=== PATIENT | female | born 1985 | race Caucasian/White ===

== ENCOUNTER 2024-03-25 11:27 | Emergency (ER) | payer OTHER ==
[~2024-03-25] VITALS: Ht 170.2 cm; Wt 147.0 kg
[~2024-03-25 11:27] MED LIST: BENADRYL25 MG PO; CLARITIN10 MG PO; DICLOFENAC SODI50 MG PO; FLONASE ALLERG9.9 ML NAS; IMITREX100 MG PO; KEFLEX500 MG PO; NAPROSYN500 MG PO; OMEPRAZOLE20 MG PO; OXYCODONE HCL5 MG; ULTRAM50 MG; ZYRTEC10 MG PO
[2024-03-25] MEDS ORDERED: SODIUM CHLORIDE 0.9% 1,000 ML IV PRN (11:45)
[2024-03-25] MEDS ORDERED: METOCLOPRAMIDE HCL 10 MG/2 ML SDV IV ONE (11:45)
[2024-03-25] MEDS ORDERED: DEXAMETHASONE SOD PHOS 10 MG/ML VIAL IV ONE (11:45)
[2024-03-25] MEDS ORDERED: diphenhydrAMINE HCL 50 MG/ML VIAL IV ONE (11:45)
[2024-03-25 11:50] LABS: BASOPHILS 0.7 % (0-2); EOSINOPHILS 3.5 % (0-6); HEMATOCRIT 38.9 % (35.0-50.0); HEMOGLOBIN 13.1 g/dL (12.0-18.0); LYMPHOCYTES 28.7 % (24-44); MCH 29.1 (27-36); MCHC 33.8 g/dl (30-36); MCV 86.3 fl (81-99); MONOCYTES 6.3 % (0-12); NEUTROPHILS 60.8 % (39-80); PLATELET COUNT 252 K/uL (140-440); RDW 13.7 (10.5-15.0)
[2024-03-25 12:11] LABS: ALBUMIN 3.4 g/dL (3.4-5.0); ALBUMIN/GLOBULIN RATIO 0.87 (1.1-2.4); ANION GAP 11.7 (7-21); BILIRUBIN, TOTAL 0.4 ng/dL (0.2-1.0); BUN/CREATININE RATIO 17.72 (6.0-28.6); CALCIUM 8.2 mg/dL (8.5-10.1); CREATININE, SERUM 0.79 mg/dL (0.55-1.02); MAGNESIUM 1.9 mg/dL (1.8-2.4); POTASSIUM 3.7 mmol/L (3.5-5.1); PROTEIN, TOTAL 7.3 g/dL (6.4-8.2)
[2024-03-25] MEDS ORDERED: NALTREXONE HCL50 MG PO (12:28)
[2024-03-25] MEDS ORDERED: LORATADINE10 MG PO (12:29)
[2024-03-25] MEDS ORDERED: METFORMIN HCL500 M1 PO (12:29)
[2024-03-25] MEDS ORDERED: CHLORPROMAZINE10 MG PO (12:30)
[2024-03-25 13:19] LABS: BILIRUBIN, URINE NEGATIVE (negative); BLOOD/HGB, URINE NEGATIVE (Negative); KETONE, URINE NEGATIVE (Negative); LEUK ESTERASE, URINE NEGATIVE (negative); NITRITE, URINE NEGATIVE (negative); PH, URINE 7.5 (5-7)
[2024-03-25 13:23] LABS: EPITHELIAL CELLS, URINE SQUAMOUS 3+ /lpf (0-1+)
[2024-03-25 13:24] LABS: BACTERIA, URINE 1+ /hpf (negative); CASTS, URINE NONE SEEN \\lpf; COLLECTION TYPE, URINE CLEAN CATCH; CRYSTALS, URINE NONE SEEN (0-1+); RED BLOOD CELLS, URINE 0-1 /hpf (0-5); REFLEX CULTURE, URINE No (No); WHITE BLOOD CELLS, URINE 0-1 /HPF (0-5)
[2024-03-25] MEDS ORDERED: KETOROLAC TROMETHAMINE 30 MG/ML VIAL IV ONE (13:30)
[2024-03-25] MEDS ORDERED: MAGNESIUM SULFATE 2 GM/50 ML BAG IV ONE (13:30)
[2024-03-25 19:03] VITALS: BP 133/72
--- NOTE | 2024-03-25 22:44 | EKG ---
[facility] [address] [facility] [place] [address] Signed Normal sinus rhythm Normal ECG No previous ECGs available Confirmed by Ba Cooley MD () on 03/25/2024 10:44:31 PM Electronically Signed By: BA COOLEY MD 03/25/24 2244 PATIENT NAME: KENIA SPENCE Electrocardiogram DATE OF : 87 PHYSICIAN: BA COOLEY MD REPORT #: [id number] REPORT IS CONFIDENTIAL AND NOT TO BE RELEASED WITHOUT AUTHORIZATION
== END 2024-03-25 19:12 | disposition home or self-care (01) ==
LOC: ED 11:27
PROVIDERS: Emergency Medicine
DX: G43.909 Migraine, unspecified, not intractable, without status migrainosus (principal); R53.1 Weakness; J45.909 Unspecified asthma, uncomplicated; E66.9 Obesity, unspecified; F43.10 Post-traumatic stress disorder, unspecified; Z87.891 Personal history of nicotine dependence; Z88.8 Allergy status to other drugs, medicaments and biological substances; Z88.5 Allergy status to narcotic agent; Z91.048 Other nonmedicinal substance allergy status; Z79.899 Other long term (current) drug therapy; Z79.84 Long term (current) use of oral hypoglycemic drugs
CPT/HCPCS: 36415; 70450; 70496; 70498; 70551; 71045; 80053; 81001; 83735; 84484; 84703; 85025; 93005; 93010; 96375; 99285-25; J1100; J1200; J1885; J2765; J3475; J7030; Q9967

== ENCOUNTER 2025-01-09 20:08 | Emergency (ER) | payer MEDICARE, OTHER ==
[~2025-01-09] VITALS: Ht 170.2 cm; Wt 147.5 kg
[~2025-01-09 20:08] MED LIST changes: +CHLORPROMAZINE10 MG PO; +LORATADINE10 MG PO; +METFORMIN HCL500 M1 PO; +NALTREXONE HCL50 MG PO
[2025-01-09] MEDS ORDERED: LAMICTAL ODT50 MG (20:24)
[2025-01-09 20:40] LABS: BASOPHILS 0.8 % (0-2); EOSINOPHILS 4.1 % (0-6); HEMATOCRIT 36.8 % (35.0-50.0); HEMOGLOBIN 12.5 g/dL (12.0-18.0); LYMPHOCYTES 30.7 % (24-44); MCH 28.9 (27-36); MCHC 34.1 g/dl (30-36); MCV 84.9 fl (81-99); MONOCYTES 6.6 % (0-12); NEUTROPHILS 57.8 % (39-80); PLATELET COUNT 296 K/uL (140-440); RBC 4.33 M/ul (4.3-5.7); RDW 13.8 (10.5-15.0)
[2025-01-09 20:58] LABS: ALBUMIN 3.3 g/dL (3.4-5.0); ALBUMIN/GLOBULIN RATIO 0.83 (1.1-2.4); ANION GAP 9.7 (7-21); BILIRUBIN, TOTAL 0.2 mg/dL (0.2-1.0); BUN/CREATININE RATIO 11.7 (6.0-28.6); CALCIUM 8.3 mg/dL (8.5-10.1); CREATININE, SERUM 0.94 mg/dL (0.55-1.02); MAGNESIUM 1.9 mg/dL (1.8-2.4); POTASSIUM 3.7 mmol/L (3.5-5.1); PROTEIN, TOTAL 7.3 g/dL (6.4-8.2)
[2025-01-09] MEDS ORDERED: KETOROLAC TROMETHAMINE 30 MG/ML VIAL IV ONE (21:45)
[2025-01-09] MEDS ORDERED: FAMOTIDINE 20 MG/ 2 ML VIAL IV ONE (21:45)
[2025-01-09 22:31] VITALS: BP 128/87
--- NOTE | 2025-01-10 10:39 | EKG ---
[facility] [address] [facility] [place] [address] Signed Normal sinus rhythm Normal ECG When compared with ECG of 25-MAR-2024 11:56, No significant change was found Confirmed by Tahir Larose DO ([id number]) on 01/10/2025 10:38:54 AM Electronically Signed By: TAHIR LAROSE DO 01/10/25 1039 PATIENT NAME: KENIA SPENCE Electrocardiogram DATE OF : 87 PHYSICIAN: TAHIR LAROSE DO REPORT #: [id number] REPORT IS CONFIDENTIAL AND NOT TO BE RELEASED WITHOUT AUTHORIZATION
== END 2025-01-09 22:32 | disposition home or self-care (01) ==
LOC: ED 20:08
PROVIDERS: Internal Medicine
DX: M75.52 Bursitis of left shoulder (principal); R07.89 Other chest pain; Z87.891 Personal history of nicotine dependence; J45.909 Unspecified asthma, uncomplicated; Z88.5 Allergy status to narcotic agent; Z91.048 Other nonmedicinal substance allergy status
CPT/HCPCS: 36415; 71045; 80053; 83735; 84484; 85025; 93005; 93010; 96374; 96375; 99285-25; J1885

== ENCOUNTER 2025-02-22 07:55 | Day surgery (SDC) | payer MEDICARE, OTHER ==
[2025-02-22] VITALS (7 sets, daily range): BP systolic 135–149; BP diastolic 64–84
[~2025-02-22] VITALS: Ht 170.2 cm; Wt 150.0 kg
[~2025-02-22 07:55] MED LIST changes: +CEFAZOLIN SODIUM 3 GM/30 ML SYR IV SCH; +HEParin SOD (PORCINE) 5,000 UNIT/ML SDV SUB-Q SCH; +IBLOOD GLUCOSE TEST STRIP 1 EA TEST VI PRN; +IBU800 MG PO; +LACTATED RINGER'S 1,000 ML IV SCH; +LAMICTAL100 MG PO; +LIDOCAINE HCL 1% 5 ML SDV INJ ONE; +MULTIVITAMIN1 EACH PO; +PAIN RELIEVER325 MG PO; +VITAMIN D350 MCG PO; +metroNIDAZOLE/SODIUM CHLORIDE 500 MG/100 ML PIGGYBACK IV SCH
[2025-02-22] MEDS ORDERED: DEXAMETHASONE SOD PHOS 4 MG/ML VIAL ONE (10:38)
[2025-02-22] MEDS ORDERED: KETOROLAC TROMETHAMINE 30 MG/ML VIAL ONE ×2 (10:38→14:56)
[2025-02-22] MEDS ORDERED: ondansetron HCL 4 MG/2 ML VIAL ONE (10:38)
[2025-02-22] MEDS ORDERED: propofoL 200 MG/20 ML VIAL ONE (10:38)
[2025-02-22] MEDS ORDERED: LIDOCAINE HCL 2% 5 ML SDV ONE (10:39)
[2025-02-22] MEDS ORDERED: ACETAMINOPHEN 1,000 MG/100 ML VIAL ONE (10:39)
[2025-02-22] MEDS ORDERED: fentaNYL citrate 100 MCG/2 ML VIAL ONE ×3 (10:39→14:33)
[2025-02-22] MEDS ORDERED: ROCURONIUM BROMIDE 50 MG/5 ML SYR ONE ×2 (10:39→13:20)
[2025-02-22] MEDS ORDERED: MIDAZOLAM HCL 2 MG/2 ML VIAL ONE (10:40)
[2025-02-22] MEDS ORDERED: SCOPOLAMINE 1 MG/3 DAYS PATCH 1 EACH TDSY ONE (13:07)
[2025-02-22] MEDS ORDERED: SEVOFLURANE 250 ML BTL INH ONE (13:42)
[2025-02-22] MEDS ORDERED: SUGAMMADEX SODIUM 200 MG/2 ML ML ONE (14:05)
[2025-02-22] MEDS ORDERED: LACTATED RINGER'S 1,000 ML IV SCH (15:00)
[2025-02-22] MEDS ORDERED: FAMOTIDINE 20 MG/ 2 ML VIAL IV PRN (15:00)
[2025-02-22] MEDS ORDERED: ondansetron HCL 4 MG/2 ML VIAL IV PRN (15:00)
[2025-02-22] MEDS ORDERED: MORPHINE SULFATE 10 MG/ML VIAL IV PRN (15:00)
[2025-02-22] MEDS ORDERED: OXYCODONE/APAP 5/325 TAB PO PRN (15:00)
[2025-02-22] MEDS ORDERED: bisacodyL 10 MG SUPP PR PRN (15:00)
[2025-02-22] MEDS ORDERED: FAMOTIDINE 20 MG TAB PO PRN (15:00)
[2025-02-22] MEDS ORDERED: SIMETHICONE 80 MG CHEW PO PRN (15:00)
[2025-02-22] MEDS ORDERED: MAGNESIUM HYDROXIDE/AL HYDROX 30 ML CUP PO PRN (15:00)
[2025-02-22] MEDS ORDERED: NALOXONE HCL 0.4 MG SYR IV PRN ×2 (15:00→15:30)
[2025-02-22] MEDS ORDERED: ALBUTEROL SULFATE 8 GM INH ONE (15:15)
[2025-02-22] MEDS ORDERED: droPERidol 5 MG/2 ML VIAL IV PRN (15:30)
[2025-02-22] MEDS ORDERED: fentaNYL citrate 50 MCG/ML SDV IV PRN (15:30)
--- NOTE | 2025-02-22 15:56 | NUR ---
Pt arrived to floor via stretcher, transported by RNs Patrica and Digna. Pt self transferred from stretcher to bed using stand and pivot method. Pt is A&O x4, but drowsy, easily awakened to voice. GCS of 15. SpO2 on room air was 87%, and I noted that her fingernails are blue and her skin is cool and pale. Pt later states that when she gets cold, her fingernails always turn blue. Pt was placed on 4lpm O2 via NC until her sats increased to above 94%, then her O2 was decreased to 2lpm, and shortly thereafter, to 1LPM. After my assessment and admission documentation was complete, Louis Beckie, from [facility], entered the room and I updated him on the pt's sats, and that she has a home CPAP for him to look over. While Louis was present, I assisted the pt to stand and ambulate one lap around the [facility] floor. She tolerated this well, and only c/o increasing pain when she got close to the room. Pt VS obtained at this time (1700 hours). VS WNL. Pt on room air during ambulation and once back in room. Pt requested the carlos catheter be d/c'd rivas as she is feeling the sensation to urinate and it is "very annoying". Per Dr. Vidales's orders, okay to D/C carlos once pt is up and ambulating. Carlos dc'd at approximately 1657 hours and pt ambulated SBA with L&T mgmt to toilet as she felt the sensation to void. She states she did not urinate and when she wiped, she noted some light spotting (blood). She requested her own underwear and stated she planned ahead and placed a maxi pad in it already. She donned her underwear with little assistance. Pt rates her abdominal pain a 3 out of 10 at this time. Pt ambulated back to bed, SCD's on, side rails up x3, call light in reach. IV in left hand D/C'd as it was leaking and painful, pressure bandage applied. Pt sitting up at bedside with dinner tray (she initially had some water and a coffee beverage from home, crackers, and jello, and tolerated that well with no c/o nausea/vomiting). Pt's caregiver is in room with her and will be staying overnight.
[2025-02-22] MEDS ORDERED: SIMETHICONE 80 MG CHEW PO SCH (17:00)
[2025-02-22] MEDS ORDERED: SYSTANE BALANCE10 ML OU (17:48)
[2025-02-22] MEDS ORDERED: ICY HOT 10-30%85 GM TOP (17:49)
[2025-02-22] MEDS ORDERED: HYDROCODON-ACE1 EA10 PO (17:50)
[2025-02-22] MEDS ORDERED: ONDANSETRON ODT8 MG PO (17:51)
[2025-02-22] MEDS ORDERED: MIRALAX17 GM PO (17:52)
[2025-02-22] MEDS ORDERED: MILK OF MA400 MG/5 M PO (17:53)
[2025-02-22] MEDS ORDERED: COUGH DROPS5.8 MG MM (17:55)
[2025-02-22] MEDS ORDERED: TUMS200 MG PO (17:57)
[2025-02-22] MEDS ORDERED: CHLORPROMAZINE10 MG PO (17:58)
[2025-02-22] MEDS ORDERED: VENTOLIN HFA18 GM INH (18:01)
[2025-02-22] MEDS ORDERED: ROBAFEN DM CGH118 ML PO (18:02)
--- NOTE | 2025-02-22 18:03 | NUR ---
MED REC COMPLETE
--- NOTE | 2025-02-22 18:11 | NUR ---
PATIENT IS IN HER CHAIR AT THIS TIME, TRYING TO EAT SOME DINNER, SO FAR SHE HAS ONLY HAD ABOUT 5% AND ASKED ME TO LEAVE IT SO SHE CAN TRY TO EAT SOME MORE. TANK SETTER HELPER CHARTED VITALS AND I&O'S, PATIENT WOULD LIKE SOME PAIN MEDS, RN NOTIFIED. CALL LIGHT WITH IN REACH AND NOTHING ELSE NEEDED AT THIS TIME,
--- NOTE | 2025-02-22 18:42 | NUR ---
Dr. Vidales in to see pt. Pt sitting up in the chair. She states she is nauseated and has pain in her abdoment 6 out of 10. IV zofran and po percocet administered at this time. Caregiver in room. Call light in reach.
--- NOTE | 2025-02-22 18:51 | NUR ---
PT RESTING SITTING UP IN CHAIR WITH EYES CLOSED. CAREGIVER AT CHAIRSIDE, TV ON. IV FLUIDS INFUSING. PT DENIES ANY NEEDS AT THIS TIME. CALL LIGHT WITHIN REACH.
--- NOTE | 2025-02-22 18:57 | NUR ---
02/22/25 185 Digna White 1508- PT ARRIVES TO PACU, SEMI MIR POSITION. O2 AT 10L PER MASK, BREATHING EVEN AND NON LABORED. LR INFUSING TO LH IV. ABD SOFT, NON DISTENDED. NO DRAINAGE FROM 3 LAP SITES ON ABD. PT HAS ANDRES CATHETER DRAINING FLOURESINE AND URINE. ALL MONITORS IN PLACE. 1515- PT VERY DROWSY, BUT ANSWERS QUESTIONS DENIES NAUSEA. C/O NEEDING TO URINATE, EDUCATED ON ANDRES CATHETER. 1522- PT MOVED TO ROOM AIR AT THIS TIME, REPORTS PAIN 4/10 TO ABD, BUT C/O NEEDING TO URINATE. 1532- PAIN INCREASING TO 7/10, MEDICATED WITH FENTANYL PER ORDER. 1538- PT DROWSY, SATS DROP TO 86% ON ROOM AIR WHILE RESTING. 2L PER NC O2 APPLIED AT THIS TIME. TOLERATING WELL. 1600- PT TAKEN TO MED/SURG, CAREGIVER WITH PT. LR HANGING TO IV, SALINE LOCK TO RAC. PT ALERT AND ABLE TO STAND AND PIVOT TO BED. PT REPORTS PAIN BACK TO 4/10 IN ABD AND REALLY WANTS THE ANDRES CATHETER REMOVED. DENIES NAUSEA. REPORT TO ALICIA NOLAN AT BEDSIDE, CARE OF PT TURNED OVER AT THIS TIME.
--- NOTE | 2025-02-22 19:36 | NUR ---
MADE ONE ATTEMPT TO START A NEW IV IN PT'S RAC, NEXT TO LEAKING SITE. UNSUCCESSFUL. PRIMARY RN EVELIO NOTIFIED. SHE PLANS TO CALL DR. RHODES TO REQUEST TO POSSIBLY D/C IV SHE IS TOLERATING PO WELL.
--- NOTE | 2025-02-22 19:40 | NUR ---
REPORT RECEIVED FROM DAY SHIFT RN. PATIENT RESTING IN BED. DENIES NEEDS AT THIS TIME. CALL LIGHT IN REACH.
[2025-02-22] MEDS ORDERED: SENNOSIDES/DOCUSATE 1 EA TAB PO SCH (21:00)
[2025-02-22] MEDS ORDERED: lamoTRIgine 25 MG TAB PO SCH (21:00)
--- NOTE | 2025-02-22 21:24 | NUR ---
PATIENT RESTING IN BED. SCHEDULED MEDICATION ADMINISTERED. ASSESSMENT COMPLETE. ABD INSICIONS C/D/I. PATIENT REPORTS 2/10 ABD PAIN. PAIN MEDICATION ADMINISTERED. PATIENT DENIES FURTHER NEEDS. CALL LIGHT IN REACH. SCHOOL GUARD IN ROOM WITH PATIENT.
--- NOTE | 2025-02-22 21:44 | NUR ---
20G IV PLACED IN LAC, GOOD BLOOD RETURN, FLUSHED WELL. RAC IV NOT PATENT, REMOVED WNL. PT TOLERATED WELL. PT UP TO BR WITH CAREGIVER. PT WILL CALL TO HAVE IV FLUIDS RESTARTED WHEN DONE IN BR. PRIMARY RN NOTIFIED.
--- NOTE | 2025-02-22 21:52 | NUR ---
PATIENT AMBULATED ONE LAP AROUND THE OLMOS AND STATES "I FEEL SO MUCH BETTER!". PATIENT BACK TO BED. DENIES FURTHER NEEDS. JOB PUTTER UP AND TICKET PREPARER IN ROOM. CALL LIGHT IN REACH.
[2025-02-22] MEDS ORDERED: IBUPROFEN 800 MG TAB PO SCH (22:00)
--- NOTE | 2025-02-22 22:44 | NUR ---
CALL LIGHT ANSWERED. PATIENT REPORTS ABD PAIN. PRN PAIN MEDICATION ADMINISTERED. PATIENT ABULATED ONE LAP AROUND THE FLOOR INDEPENDENTLY. PATIENT BACK TO BED. NO FURTHER NEEDS. CALL LIGHT IN REACH.
--- NOTE | 2025-02-23 00:05 | NUR ---
PATIENT UP TO BATHROOM INDEPENDENTLY TO VOID. PATIENT AMBULATED ONE LAP AROUND THE OLMOS. PATIENT BACK TO BED. NO FURTHER NEEDS. CALL LIGHT IN REACH.
[2025-02-23 01:44] VITALS: BP 123/68
--- NOTE | 2025-02-23 02:04 | NUR ---
PATIENT UP TO BATHROOM INDEPENDENTLY TO VOID. PATIENT AMBULATED LAP AROUND FLOOR. PATIENT BACK TO BED. VS AND I&Os OBTAINED AND RECORDED. NEW BAG IV FLUID INFUSING PER ORDER. NO FURTHER NEEDS. CALL LIGHT IN REACH.
[2025-02-23 04:30] VITALS: BP 129/66
--- NOTE | 2025-02-23 04:33 | NUR ---
PATIENT AMBULATED LAP AROUND THE FLOOR INDEPENDENTLY. PATIENT REPORTS 5/10 ABD PAIN. PRN PAIN MEDICATION ADMINISTERED. VS AND I&Os OBTAINED AND RECORDED. PATIENT DENIES FURTHER NEEDS. CALL LIGHT IN REACH.
[2025-02-23 04:34] VITALS: BP 129/66
[2025-02-23 05:21] LABS: HEMATOCRIT 35.8 % (34.1-44.9); HEMOGLOBIN 11.4 g/dL (11.2-15.7); MCH 28.1 PG (25.6-32.2); MCHC 31.8 g/dL (32.2-35.5); MCV 88.4 fL (79.4-94.8); RBC 4.05 M/uL (3.93-5.22)
[2025-02-23] MEDS ORDERED: HEParin SOD (PORCINE) 5,000 UNIT/ML SDV SUB-Q SCH (06:00)
--- NOTE | 2025-02-23 06:08 | NUR ---
PATIENT RESTING IN BED. SCHEDULED MEDICATION ADMINISTERED. NO FURTHER NEEDS. CALL LIGHT IN REACH.
--- NOTE | 2025-02-23 07:25 | NUR ---
MORNING REPORT RECIEVED FROM AN FRASER. PT HAS BEEN AMBULATING THE HALLS THIS MORNING AND TOLERATING WELL. PT IS CURRENTLY LAYING IN BED IN ROOM WITH CAREGIVER PRESENT AT THIS TIME. PT IS AWAKE AND ALERT AND HAS NO CURRENT NEEDS AT THIS TIME, PT CALL LIGHT IN REACH.
--- NOTE | 2025-02-23 09:00 | NUR ---
PT AMBULATING THE HALLS AT THIS TIME, PT HAS NO CONCERNS OR PAIN, PT HAS CALL LIGHT IN REACH AND HOT FRAME TENDER IS WITH PT.
--- NOTE | 2025-02-23 09:03 | OR ---
[facility] [address] [place] [id number] Signed DATE OF OPERATION: 02/22/2025 SURGEON: Doris Vidales MD PREOPERATIVE DIAGNOSES: 1. Menometrorrhagia. 2. Dysmenorrhea. 3. Premenstrual dysphoric disorder. POSTOPERATIVE DIAGNOSES: 1. Menometrorrhagia. 2. Dysmenorrhea. 3. Premenstrual dysphoric disorder. PROCEDURES: Total laparoscopic hysterectomy, bilateral salpingo-oophorectomy, and cystoscopy. FINDINGS: 8-week size anteverted uterus. Normal uterus. Normal tubes and ovaries. Normal bladder. Bilateral ureteral jets during cystoscopy. ANESTHESIA: General endotracheal anesthesia. BDC MANAGER: Hallie Connor DO. IV FLUID: 1400 mL crystalloid. ESTIMATED BLOOD LOSS: 50 mL. URINE OUTPUT: 50 mL clear urine. DRAINS: Shultz to gravity. SPECIMENS: Electronically Signed By: DORIS VIDALES MD 02/23/25 0903 PATIENT NAME: KENIA SPENCE OPERATIVE REPORT DATE OF : [birth year] REPORT #: [id number] PHYSICIAN: DORIS VIDALES MD PCP: YASMANI PILLAI MD REPORT IS CONFIDENTIAL AND NOT TO BE RELEASED WITHOUT AUTHORIZATION [facility] [address] [place] [id number] Signed Uterus with cervix, tubes, and ovaries. COUNTS: Correct x2. COMPLICATIONS: Intraoperative sutures through the bladder were rectified before the end of the procedure. TECHNIQUE IN DETAIL: With informed consent, the patient was taken to the operating room where she was given general anesthesia via rapid sequence induction. Lower extremities were placed in SCD pneumatic compression devices and then placed in Yellofin stirrups. She was given 2 g of Ancef IV per protocol. She was also given 5000 units subcutaneously of heparin for DVT prophylaxis being moderate risk. She underwent exam under anesthesia. She was then prepped and draped in sterile fashion. A Shultz was placed under sterile technique. Over gloves were removed and attention was turned to the abdomen. An approximately 3 cm infraumbilical incision was made. Blunt dissection was used to access the rectus fascia. The rectus fascia was grasped with Allis clamps and elevated. Using Metzenbaum scissors, we carefully incised the fascia. Once the fascial plane was found, this was slightly enlarged to allow placement of a 10 mm Zoraida port. Stay sutures of 0 Vicryl were placed superiorly and inferiorly. The peritoneum was entered bluntly. The Zoraida port was then inserted and the balloon inflated. We then attached port to CO2 insufflation. With adequate insufflation, a 10 mm scope was inserted and the patient was placed in Trendelenburg position. We could then visualize the placement of the VCare uterine manipulator. Dr. Connor went below and placed a speculum in the vagina so that you could visualize the cervix. A single-tooth tenaculum was placed on the anterior lip of the cervix. The uterus was then sounded. He carefully dilated under direct visualization. VCare uterine manipulator was then inserted under direct visualization, which allowed placement, otherwise it would not have been possible. His over gloves were then removed and he joined me up above. 5 mL of 0.25% Marcaine with epinephrine were injected in the left lateral quadrant lateral to the inferior epigastric vessels, which we visualized from inside. A 1 cm incision was made and a 5 mm bladed port was inserted under direct visualization and without difficulty. Balloon was insufflated on the 5 mm port. In the right lower quadrant, an 8/12 mm expanding port was used. We injected 5 mL of 0.25% Marcaine in the right lower quadrant. The Veress needle was inserted under direct visualization. The 8/12 mm port was inserted over this Veress needle under direct visualization and without Electronically Signed By: DORIS VIDALES MD 02/23/25 0903 PATIENT NAME: KENIA SPENCE OPERATIVE REPORT DATE OF : [birth year] REPORT #: [id number] PHYSICIAN: DORIS VIDALES MD PCP: YASMANI PILLAI MD REPORT IS CONFIDENTIAL AND NOT TO BE RELEASED WITHOUT AUTHORIZATION [facility] [address] [place], [place] [address] Signed difficulty. Attention was then turned to the uterus. The left fallopian tube and ovary were elevated. The course of the left ureter was identified and noted to be well away from the left infundibulopelvic ligament. Using the LigaSure device, the IP ligament was cauterized several times and finally cut. The left mesosalpinx and ovarian ligament was cauterized and cut following medially to the left tubal cornua. The tube was then transected and the left ovary and left fallopian tube were set in the posterior cul-de-sac. Same procedure was carried out on the right side. Most notably, we identified the course of the ureter, which was, again, well away from the right IP ligament. We then cauterized several locations and transected the IP ligament with the LigaSure device. The right-sided mesosalpinx and ovarian ligament were cauterized and cut to the level of the right tubal cornua and the tube was then transected. Using an EndoCatch bag, which was placed through the periumbilical port, the ovaries and tubes were placed in the bag under direct visualization and removed without difficulty. We then used the LigaSure device to cauterize and transect the broad ligament on the left to the level of the uterine arteries. This was done on the left and right side. We then developed bladder flap with a combination of gentle retraction and a sharp dissection. This was done coming from both left and right sides. We then developed the posterior peritoneal flap under direct visualization using the LigaSure device as well. Once we had the left and right uterine arteries skeletonized, they were cauterized multiple times and transected above the ring from the [employer]tronics uterine manipulator. This was done on both left and right sides. We had good hemostasis noted. With the uterus under traction in a superior direction, the Harmonic scalpel was used to cut the vaginal cuff. We used the ring to guidance. We saw the green ring and followed this around ensuring that we were well away from important vascular structures. The uterus was then pulled into the vagina and left in place for keeping pneumoperitoneum. We used a laparoscopic suture device to close the vaginal cuff ensuring that we had vagina on both sides. This was done without difficulty. The patient was given fluorescein intravenously and attention was turned to the bladder. The cystocope was placed and we noted two sutures in the bladder dome. At this point, we decided to go ahead and look for bilateral fluorescein injection from both ureters, which was done and all those in the OR saw good efflux of fluorescein. We then turned our attention to removing the sutures and the bladder. Over gloves were removed and we went up top. The vaginal cuff sutures were removed without difficulty. We took a really close look Electronically Signed By: DORIS VIDALES MD 02/23/25 0903 PATIENT NAME: KENIA SPENCE OPERATIVE REPORT DATE OF : [birth year] REPORT #: [id number] PHYSICIAN: DORIS VIDALES MD PCP: YASMANI PILLAI MD REPORT IS CONFIDENTIAL AND NOT TO BE RELEASED WITHOUT AUTHORIZATION [facility] [address] [place], [place] [address] Signed to ensure that we have removed all sutures. We then developed a bladder flap off the anterior vagina a bit more with some blunt dissection. We then closed the vaginal cuff again using a laparoscopic suture device. Good hemostasis was noted. At this point, we sprayed some Tisseel on the raw surfaces where we had performed surgery. Cystoscopy was then placed and the bladder dome with a bubble was seen. We took a really close look at the entire bladder and saw no suture or puckering of the bladder in a full state. At this time, we decided that we have satisfactorily removed all sutures and the bladder was in good shape. Shultz was placed. Over gloves were removed. The fascia for the infraumbilical port was closed using 0 Vicryl in a running fashion. 0 Vicryl was also used to place a running subcutaneous stitch. The skin incisions were closed with 3-0 Vicryl. Dermabond was placed. DISPOSITION: The patient was extubated in the operating room and she was taken to the recovery room in stable condition. Doris Vidales MD BB/MODL /[id number] Copies: ~ Electronically Signed By: DORIS VIDALES MD 02/23/25 0903 PATIENT NAME: KENIA SPENCE OPERATIVE REPORT DATE OF : [birth year] REPORT #: [id number] PHYSICIAN: DORIS VIDALES MD PCP: YASMANI PILLAI MD REPORT IS CONFIDENTIAL AND NOT TO BE RELEASED WITHOUT AUTHORIZATION
[2025-02-23] MEDS ORDERED: estradioL 1 MG TAB PO SCH (09:24)
[2025-02-23 09:41] VITALS: BP 115/64
[2025-02-23 10:13] VITALS: BP 115/64
--- NOTE | 2025-02-23 11:04 | NUR ---
PATIENT BRUSHED HER TEETH AND WASHED HER FACE. ASKED PATIENT IF SHE WOULD LIKE TO TAKE A SHOWER AND SHE SAID NO.
[2025-02-23 13:05] VITALS: BP 133/62
--- NOTE | 2025-02-23 13:10 | NUR ---
IV IS OUT DISCHARGE VITALS DONE.
--- NOTE | 2025-02-23 13:42 | NUR ---
PT SITTING ON EDGE OF BED, PT HAS NO CONCERNS AT THIS TIME AND IS WAITING FOR TRANSPORTATION, PT READY TO DC AND HAS CALL LIGHT IN REACH.
--- NOTE | 2025-02-23 14:04 | NUR ---
PT WAITING FOR TRANSPORTATION AT THIS TIME, PT HAD SCOPE PATCH BEHIND LEFT EAR WHICH WAS REMOVED AND DISCARDED OF. PT ALSO HAD PAIN 5/10 AND WAS GIVEN PERCOCET PRN (SEE EMAR). PT HAS NO OTHER CONCERNS AT THIS TIME.
--- NOTE | 2025-02-26 17:52 | PATH ---
[facility] [address] [place], [place] [address] Signed SPECIMEN(S): A UTERUS, CERVIX, TUBES AND OVARIES SPECIMEN SOURCE: A. UTERUS, CERVIX, TUBES AND OVARIES CLINICAL HISTORY: Menorrhagia and dysmenorrhea. FINAL PATHOLOGIC DIAGNOSIS: Uterus with bilateral adnexa, hysterectomy with bilateral salpingo-oophorectomy: - Cervix: Nabothian cyst and mild mixed acute and chronic inflammation. - Negative for intraepithelial lesion and malignancy. - Endometrium: Proliferative endometrium. - Negative for hyperplasia, atypia and malignancy. - Myometrium: Benign myometrium with a 3.0 millimeter diameter leiomyoma. - Serosa: Benign serosa with no specific histopathologic abnormality. - Fallopian tubes: Undesignated right and left fallopian tubes with fimbriated ends. - Bilateral benign paratubal cysts, up to 10.0 mm in diameter. - Negative for atypia and malignancy. - Ovaries: Undesignated right and left ovaries with developing follicles, cystic follicles, and corpora albicantia. - One ovary has a hemorrhagic corpus luteum. - No atypia or neoplastic process identified. SDL MICROSCOPIC EXAMINATION: Histologic sections of all submitted blocks are examined by light microscopy. These findings, together with the gross examination, support the pathologic diagnosis. GROSS DESCRIPTION: The specimen, labeled and designated "Diana, C, " and designated on the requisition "uterus seven by lateral tubes ovaries, cervix," is received in formalin and consists of 72 gram uterus and cervix with bilateral adnexa. The uterus is 2.4 x 3.2 x 8.1 cm (cornu-cornu x anterior-posterior x fundus-ectocervix). The serosal surface is violaceous and smooth. The ectocervical mucosa is violaceous and smooth with multiple defects that measure up to 1.4 cm in greatest dimension. Serial sectioning of the cervix shows no gross PATIENT NAME: KENIA SPENCE PATHOLOGY DATE OF : [birth year] REPORT #: [id number] PHYSICIAN: [facility] PCP: YASMANI PILLAI MD REPORT IS CONFIDENTIAL AND NOT TO BE RELEASED WITHOUT AUTHORIZATION [facility] [address] [place], [place] [address] Signed abnormalities. The triangular endometrial cavity is lined by a red shaggy endometrium with a thickness of 0.3 - 0.4 cm. Sectioning through the uterus reveals a pink moderately trabeculated myometrium with one smooth muscle nodule that is 0.3 cm in diameter. The first tubo-ovarian complex has a 5.8 x 0.7 cm fallopian tube with delicate fimbriae. The serosa is violaceous and smooth with paratubal cysts. Cut sections reveal a pinpoint lumen. The corresponding 5 gram ovary is 3.4 x 2.0 x 1.7 cm with a white-mackey cerebriform external surface. Serial sectioning reveals a pink-white variegated parenchyma with multiple clear watery fluid-filled cysts. No papillary excrescences are grossly identified. The second tubo-ovarian complex has a 5.2 x 0.7 cm fallopian tube with delicate fimbriae. The serosa is violaceous and smooth with paratubal cysts. Cut sections reveal a pinpoint lumen. The corresponding 8 gram ovary is 4.2 x 2.1 x 1.8 cm, with a white-mackey cerebriform external surface. Serial sectioning reveals a pink-white variegated ovarian parenchyma with multiple clear watery fluid-filled cysts. No papillary excrescences are grossly identified. Core Analysis Operator sections are submitted in eight cassettes. Cassette Summary: (A1-A3) first tubo-ovarian complex (A4-A6) second tubo-ovarian complex (A7) cervix (A8) uterine wall with nodule FB (under the direct supervision of a pathologist) The Gross Description was prepared using a voice recognition system. The report was reviewed for accuracy; however, sound-alike word errors, addition and/or deletions may occur. If there are any questions about this report, please contact Client Services. ADDITIONAL NOTES: Immunohistochemical and/or in situ hybridization studies if performed in this case included appropriate positive controls that reacted as expected. This test was developed and its performance characteristics determined by [employer]. It has not been cleared or approved by the U.S. Food and Drug Administration. The FDA has determined that such clearance or approval is not necessary. This test is used for clinical purposes. It should not be regarded as investigational or for research. [employer] [facility] is certified under the Clinical Laboratory Improvement PATIENT NAME: KENIA SPENCE PATHOLOGY DATE OF : [birth year] REPORT #: [id number] PHYSICIAN: [facility] PATHOLOG[facility] PCP: YASMANI PILLAI MD REPORT IS CONFIDENTIAL AND NOT TO BE RELEASED WITHOUT AUTHORIZATION [facility] [address] [place], [place] [address] Signed Amendments of 1988 (CLIA) as qualified to perform high complexity clinical laboratory testing. PERFORMING LABORATORY: Technical component was performed by [facility], [address] [place] [id number] (CLIA# [id number]). Professional interpretation was performed by [facility], [address] [place] [id number] (CLIA#: [id number]). Diagnostician: Veronica Vargas MD Pathologist Electronically Signed 02/26/2025 Copies: ~ PATIENT NAME: KENIA SPENCE PATHOLOGY DATE OF : [birth year] REPORT #: [id number] [facility] PCP: YASMANI PILLAI MD REPORT IS CONFIDENTIAL AND NOT TO BE RELEASED WITHOUT AUTHORIZATION
== END 2025-02-23 14:11 | disposition home or self-care (01) ==
LOC: DS 07:55 → MS 15:56 → DS 02-23 14:11
PROVIDERS: ATTEND Obstetrics & Gynecology
PROC: 0UT24ZZ Resection of Bilateral Ovaries, Percutaneous Endoscopic Approach (ICD-10-PCS; 2025-02-22)
PROC: 0UT74ZZ Resection of Bilateral Fallopian Tubes, Percutaneous Endoscopic Approach (ICD-10-PCS; 2025-02-22)
PROC: 0UT94ZZ Resection of Uterus, Percutaneous Endoscopic Approach (ICD-10-PCS; principal; 2025-02-22 10:00)
DX: D25.9 Leiomyoma of uterus, unspecified (principal); N88.8 Other specified noninflammatory disorders of cervix uteri; N72 Inflammatory disease of cervix uteri; N83.8 Other noninflammatory disorders of ovary, fallopian tube and broad ligament; F32.81 Premenstrual dysphoric disorder; G43.829 Menstrual migraine, not intractable, without status migrainosus; E78.5 Hyperlipidemia, unspecified; E03.9 Hypothyroidism, unspecified; E66.01 Morbid (severe) obesity due to excess calories; Z68.43 Body mass index [BMI] 50.0-59.9, adult; Z79.84 Long term (current) use of oral hypoglycemic drugs; Z79.899 Other long term (current) drug therapy; Z88.5 Allergy status to narcotic agent
CPT/HCPCS: 00840; 36415; 85027; 88307; 94762; 94799; 96360; 96361; 96374; A9270; J0131; J1100; J1644; J1885; J2003; J2250; J2405; J2704; J3010; J3490; J7121

== ENCOUNTER 2025-06-05 20:37 | Emergency (ER) | payer MEDICARE, OTHER ==
[~2025-06-05] VITALS: Ht 170.2 cm; Wt 150.0 kg
[~2025-06-05 20:37] MED LIST changes: -CEFAZOLIN SODIUM 3 GM/30 ML SYR IV SCH; +COUGH DROPS5.8 MG MM; -HEParin SOD (PORCINE) 5,000 UNIT/ML SDV SUB-Q SCH; +HYDROCODON-ACE1 EA10 PO; -IBLOOD GLUCOSE TEST STRIP 1 EA TEST VI PRN; +ICY HOT 10-30%85 GM TOP; -LACTATED RINGER'S 1,000 ML IV SCH; -LIDOCAINE HCL 1% 5 ML SDV INJ ONE; +MILK OF MA400 MG/5 M PO; +MIRALAX17 GM PO; +ONDANSETRON ODT8 MG PO; +ROBAFEN DM CGH118 ML PO; +SYSTANE BALANCE10 ML OU; +TUMS200 MG PO; +VENTOLIN HFA18 GM INH; -metroNIDAZOLE/SODIUM CHLORIDE 500 MG/100 ML PIGGYBACK IV SCH
[2025-06-05] MEDS ORDERED: LACTATED RINGER'S 1,000 ML IV ONE (22:15)
[2025-06-05] MEDS ORDERED: PROCHLORPERAZINE EDISYLATE 10 MG/2 ML VIAL IV ONE (22:15)
[2025-06-05] MEDS ORDERED: KETOROLAC TROMETHAMINE 30 MG/ML VIAL IV ONE (22:15)
[2025-06-05 23:53] VITALS: BP 120/66
== END 2025-06-06 00:01 | disposition home or self-care (01) ==
LOC: ED 20:37
DX: G43.919 Migraine, unspecified, intractable, without status migrainosus (principal); J45.909 Unspecified asthma, uncomplicated; Z91.048 Other nonmedicinal substance allergy status; Z88.5 Allergy status to narcotic agent; Z91.018 Allergy to other foods; Z79.84 Long term (current) use of oral hypoglycemic drugs; Z79.899 Other long term (current) drug therapy
CPT/HCPCS: 96374; 96375; 99283; J0780; J1200; J1885; J7121